=== PATIENT | male | born 1990 | race Caucasian/White ===

== ENCOUNTER 2021-01-02 15:38 | Emergency (ER) | payer SELFPAY ==
--- NOTE | 2021-01-02 16:09 | ED_ITS ---
HPI - Male Genitourinary General Chief complaint: Urogenital-Male Stated complaint: STD testing Mode of arrival: ambulatory Limitations: no limitations History of Present Illness HPI Narrative: This is a 30-year-old male that presents with penile discharge has had unprotected sex with his girlfriend, currently there is no rash no penile lesions no fever chills no dysuria no hematuria no abdominal pain no flank pain no nausea vomiting. MD Complaint: penile discharge Onset (ago): day(s) Duration: intermittent Location: penis Severity: mild Review of Systems Review of Systems: All systems reviewed & are unremarkable except as noted in HPI and below [facility] Past Medical History Medical History Patient denies medical problems Exam Const: General: no acute distress and alert HENMT: Head: normal to inspection Eyes: Conjunctivae: conjunctivae normal Pupils: Equal, round and reactive pupils present Neck: Neck: normal visual inspection, no lymphadenopathy and no meningeal signs Chest: Chest palpation & inspection: normal inspection of the chest Resp: Effort & Inspection: normal respiratory effort Cardio: Rate: regular rate Rhythm: regular rhythm GI: GI Palp: Yes Soft to palpation : Other: penile discharge Urinary Catheter: Urinary Catheter: patent and draining and urine clear Back/Spine/Pelvis: Back: no CVA tenderness Skin: General skin exam: normal color Rashes: no rashes Psych: Mental Status: mental status grossly normal Affect: normal affect Course Course Emergency Course: patient gave a sample for urine GNC and will obtain blood work for HIV and RPR, the patient was given a g of Rocephin and a g of Zithromax. Critical Care Time Critical Care Time Critical Care Time: No Discharge Plan Discharge Clinical Impression: STD exposure Patient Disposition: Home, Self-Care Condition: Stable Instructions: Antibiotic Form, Sexually Transmitted Diseases (ED) Additional Instructions: follow-up with primary care physician within 1 to 2 weeks for further evaluation and treatment advised to have all sexual partners treated. Follow-up/Referrals: UNKNOWN,DOCTOR [Primary Care Provider] - Time of Disposition: 16:13
[2021-01-02 16:13] VITALS: BP 140/101; PULSE 78; RESP 20; TEMP 36.5; O2SAT 98
[2021-01-02] MEDS: LIDOCAINE HCL 1% LOCAL INJ 20 ML VIAL (16:13)
[2021-01-02] MEDS: AZITHROMYCIN 250 MG TABLET 1000 MG PO (16:13)
[2021-01-02] MEDS: cefTRIAXone 1 GM VIAL IM (16:13)
[2021-01-02 16:41] VITALS: BP 146/100; PULSE 96; RESP 20; TEMP 36.7; O2SAT 98
[2021-01-02 17:23] LABS: HIV 1 P24 AG Negative (Negative); HIV 1/2 AB Negative (Negative)
[2021-01-04 15:12] LABS: RPR Screen Non-Reactive (Non-Reactive)
== END 2021-01-02 16:43 | disposition home or self-care (01) ==
PROVIDERS: Emergency Provider Emergency Medicine
DX: Z20.2 Contact with and (suspected) exposure to infections with a predominantly sexual mode of transmission (principal)
CPT/HCPCS: 36415; 86592; 86703; 87491; 87591; 96372; 99283; A9270; J0696

== ENCOUNTER 2023-10-30 22:59 | Emergency (ER) | payer SELFPAY ==
[2023-10-30 23:02] VITALS: BP 163/119; PULSE 115; RESP 20; TEMP 36.6; O2SAT 98
--- NOTE | 2023-10-30 23:08 | PC.NURSE ---
patient came to desk asking if he could go out and smoke. encouraged patient to wait in the room for ER provider
--- NOTE | 2023-10-30 23:37 | ED.GENADULT ---
HPI - General Adult General Chief complaint: Unspecified Stated complaint: STD check, Parasite check Time Seen by Provider: 10/30/23 23:20 Source: patient Mode of arrival: ambulatory Limitations: no limitations History of Present Illness HPI narrative: patient is a 33-year-old known meth amphetamine user presents with a high with asymptomatic no dysuria no fever chills no high-risk sexual activity. JUST CONCERNED ABOUT STD AND WANTS TO BE EVALUATED. Related Data Home Medications Medication Instructions Recorded Confirmed No Home Medications 01/02/21 01/02/21 Allergies Allergy/AdvReac Type Severity Reaction Status Date / Time No Known Allergies Allergy Verified 01/02/21 16:20 Review of Systems Review of Systems: All systems reviewed & are unremarkable except as noted in HPI and below PMFSH Past Medical History Medical History Patient denies medical problems Social History Social History Gender identity (if verbalized by the patient): Male Exam Const: General: cooperative, healthy appearing, comfortable, no acute distress and well developed HENMT: Head: normal to inspection Face and sinus: normal facial exam Mouth: Yes Normal oral and palatal mucosa present Eyes: General: appearance normal, both eyes and all related structures Visual Valdes: normal visual valdes by confrontation Neck: Neck: normal visual inspection, full ROM and no lymphadenopathy Chest: Chest palpation & inspection: normal inspection of the chest Resp: Effort & Inspection: normal respiratory effort : General: Yes bimanual renal exam normal bilaterally Skin: General skin exam: normal color and no rashes or lesions noted Neuro: General: oriented to person, oriented to place, oriented to time and patient oriented x3 Course Course Emergency Course: CBC and STD evaluation with RPR HIV and gonorrhea and Chlamydia were performed. Vital Signs Vital signs: Vital Signs Temperature 36.6 C 10/30/23 23:02 Pulse Rate 115 H 10/30/23 23:02 Respiratory Rate 20 10/30/23 23:02 Blood Pressure 163/119 H 10/30/23 23:02 Pulse Oximetry 98 10/30/23 23:02 Oxygen Delivery Room Air 10/30/23 23:02 Temperature 36.6 C 10/30/23 23:02 Pulse Rate 115 H 10/30/23 23:02 Respiratory Rate 20 10/30/23 23:02 Blood Pressure 163/119 H 10/30/23 23:02 Pulse Oximetry 98 10/30/23 23:02 Oxygen Delivery Room Air 10/30/23 23:02 Medical Decision Making Vital Signs Vital Signs: Vital Signs Temperature 36.6 C 10/30/23 23:02 Pulse Rate 115 H 10/30/23 23:02 Respiratory Rate 20 10/30/23 23:02 Blood Pressure 163/119 H 10/30/23 23:02 Pulse Oximetry 98 10/30/23 23:02 Oxygen Delivery Room Air 10/30/23 23:02 Temperature 36.6 C 10/30/23 23:02 Pulse Rate 115 H 10/30/23 23:02 Respiratory Rate 20 10/30/23 23:02 Blood Pressure 163/119 H 10/30/23 23:02 Pulse Oximetry 98 10/30/23 23:02 Oxygen Delivery Room Air 10/30/23 23:02 Critical Care Time Critical Care Time Critical Care Time: No Discharge Plan Discharge Clinical Impression: STI (sexually transmitted infection) Patient Disposition: Home, Self-Care Condition: Stable Instructions: Antibiotic Form, Sexually Transmitted Diseases (ED) Additional Instructions: advised follow-up with primary care physician. Prescriptions: No Action No Home Medications Follow-up/Referrals: UNKNOWN,DOCTOR [Primary Care Provider] -
[2023-10-30] MEDS: cloNIDine HCL 0.1 MG TABLET 0.2 MG PO (23:59)
[2023-10-31 00:05] LABS: Basophils Absolute Auto 0.05 K/mm3 (0.00-0.10); Basophils Percent Auto 0.6 % (0.0-1.0); Eosinophils Absolute Auto 0.13 K/mm3 (0.02-0.50); Eosinophils Percent Auto 1.5 % (1.0-6.0); Hematocrit 44.5 % (40.0-54.0); Hemoglobin 15.3 g/dL (14.0-18.0); Immature Granulocyte Absolute 0.03 K/mm3 (0.00-0.00); Immature Granulocyte Percent A 0.3 % (0.0-0.0); Lymphocytes Absolute Auto 2.32 K/mm3 (1.10-4.50); Lymphocytes Percent Auto 26.5 % (18.0-42.0); Mean Corpuscular HGB Conc 34.4 g/dL (32-36); Mean Corpuscular Hemoglobin 29.7 pg (27.0-31.0); Mean Corpuscular Volume 86.2 fL (78.0-102.0); Mean Platelet Volume 10.6 fl (8.7-11.0); Monocytes Absolute Auto 0.78 K/mm3 (0.10-0.90); Monocytes Percent Auto 8.9 % (2.0-11.0); Neutrophils Absolute Auto 5.43 K/mm3 (1.70-7.20); Neutrophils Percent Auto 62.2 % (50.0-70.0); Platelet Count Result 191 K/mm3 (150-420); Red Blood Count 5.16 M/mm3 (4.70-6.10); Red Cell Distribution Width 11.6 % (11.6-14.4); White Blood Count 8.7 K/mm3 (4.8-10.8)
[2023-10-31 00:20] VITALS: BP 154/113
[2023-10-31 00:23] VITALS: BP 153/114; PULSE 88; RESP 18; O2SAT 100
[2023-10-31 01:05] LABS: HIV 1 P24 AG Negative (Negative); HIV 1/2 AB Negative (Negative)
[2023-11-01 08:12] LABS: Chlamydia trachomatis NOT DETECTED (NOT DETECTE); Neisseria gonorrhoeae PCR NOT DETECTED (NOT DETECTE)
[2023-11-01 13:53] LABS: RPR Screen NON-REACTIVE (NON-REACTIVE)
== END 2023-10-31 00:24 | disposition home or self-care (01) ==
LOC: CHSED 10-31 00:19
PROVIDERS: Emergency Provider Emergency Medicine
DX: A64 Unspecified sexually transmitted disease (principal)
CPT/HCPCS: 36415; 85025; 86592; 87491; 87591; 87806; 99283; A9270

== ENCOUNTER 2024-12-06 21:10 | Emergency (ER) | payer OTHER, SELFPAY ==
[2024-12-06 21:10] VITALS: BP 174/127; PULSE 98; RESP 16; TEMP 36.6; O2SAT 96
--- OUTSIDE RECORDS SUMMARY | 2024-12-06 21:13 | XMS_ITS | Clinical Summary ---
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 Gender Identity Not on file Sexual Orientation Not on file Last Filed Vital Signs Vital Sign Reading Time Taken Comments Blood Pressure 158/106 11/06/2021 10:22 PM CDT Pulse 79 11/06/2021 10:22 PM CDT Temperature 36.6 C (97.9 F) 11/06/2021 10:22 PM CDT Respiratory Rate 16 11/06/2021 10:22 PM CDT Oxygen Saturation 100% 11/06/2021 10:22 PM CDT Inhaled Oxygen Concentration - - Weight 63.5 kg (140 lb) 11/06/2021 10:22 PM CDT Height 182.9 cm (6') 11/06/2021 10:22 PM CDT Body Mass Index 18.99 11/06/2021 10:22 PM CDT Plan of Treatment Health Maintenance Due Date Last Done Comments Annual Physical 1994 DTaP, Tdap and Td Vaccines (6 - Tdap) 2002 09/20/1996, 10/16/1992, 06/19/1992, Additional history exists Hepatitis C 2009 HPV Vaccines (1 - 3-dose SCDM series) 2018 COVID-19 Vaccine ( season) 2024 Hepatitis B Vaccines Completed 03/21/1997, 10/18/1996, 09/20/1996 Meningococcal B Vaccine Aged Out No l onger eligible based on patient's age to complete this topic Meningococcal Vaccine Aged Out No syeda faith eligible based on patient's age to complete this topic Pneumococcal Vaccine: Pediatrics (0 to 5 Years) and At-Risk Patients (6 to 49 Years) Aged Out No longer eligible based on patient's age to complete this topic RSV Immunizations Under 20 Months Aged Out No longer eligible based on patient's age to complete this topic Care Teams Medical Leader Relationship Specialty Start Date End Date None, Provider, PCP - General 11/06/21
--- NOTE | 2024-12-06 21:38 | ED_ITS ---
HPI - Skin/Abscess/Foreign Bdy General Chief complaint: Skin/Abscess/Foreign Body Stated complaint: RASH Time Seen by Provider: 12/06/24 21:11 Source: patient Mode of arrival: ambulatory Limitations: no limitations History of Present Illness HPI narrative: 34-year-old male, smoker active methamphetamine use presents to the ED with a 3 day history of -- bilateral lower legs and foot erythematous rash with maculopapular lesions and erythema. Pruritic. possible exposure to poison delmi. No throat swelling, tongue swelling, shortness of breath or lightheadedness. Had a tetanus shot many years ago. complaint: rash Onset (ago): day(s) ( Three days) Tetanus up to date: no Location: LUE Severity: severe Quality: pruritic Pain Consistency: constant Relieving factors: none Exacerbating factors: none Context: other ( exposure to poison delmi.) Associated symptoms: denies other symptoms Treatments prior to arrival: none Related Data Home Medications ?Medication ?Instructions ?Recorded ?Confirmed ?Last Taken ?Type No Home Medications 01/02/21 01/02/21 Unknown History Allergies Allergy/AdvReac Type Severity Reaction Status Date / Time No Known Allergies Allergy Verified 01/02/21 16:20 Review of Systems Review of Systems: All systems reviewed & are unremarkable except as noted in HPI and below PMFSH Past Medical History Medical History Patient denies medical problems Social History Social History (Updated 12/06/24 @ 21:47 by Song Perez MD) Social History: Smoker, amphetamine abuse. Gender identity (if verbalized by the patient): Male Exam Narrative: Blood pressure is currently 174/127. Const: General: no acute distress Orientation/consciousness: patient orie nted x3 Limitations: no limitations HENMT: Head: normal to inspection Ears: external ears normal Face/Nose/Sinus: Normal external nose present Face and sinus: normal facial exam Mouth: Yes Normal oral and palatal mucosa present Throat: posterior oropharynx normal Eyes: Conjunctivae: conjunctivae normal Pupils: Equal, round and reactive pupils present EOM: EOMs intact bilaterally Direct Ophthalmoscopy: no photophobia Neck: Neck: normal visual inspection, no lymphadenopathy and no meningeal signs Chest: Chest palpation & inspection: normal inspection of the chest Resp: Effort & Inspection: normal respiratory effort Auscultation: clear to auscultation bilaterally Cardio: Rate: regular rate Rhythm: regular rhythm GI: GI Palp: Yes Soft to palpation Auscultation: normal bowel sounds Other: No tenderness/rigidity /rebound. : General: Yes no CVA tenderness Back/Spine/Pelvis: Back: no CVA tenderness Skin: Other: Rash in lower legs and foot-- erythematous, maculopapular. Neuro: General: patient oriented x3, moves all extremities, no meningeal signs and no focal motor deficits Speech: normal speech Extrem: General: normal to inspection and no clubbing, cyanosis or edema Psych: Mental Status: mental status grossly normal Affect: normal affect Attitude: cooperative Course Course Emergency Course: Allergic contact dermatitis-- will treat with Benadryl, Solu-Medrol 125. Patient is not up-to-date on tetanus will give him a dose of Adacel Vital Signs Vital signs: Vital Signs Temperature 36.6 C 12/06/24 21:10 Pulse Rate 98 12/06/24 21:10 Respiratory Rate 16 12/06/24 21:10 Blood Pressure 174/127 H 12/06/24 21:10 Pulse Oximetry 96 12/06/24 21:10 Oxygen Delivery Room Air 12/06/24 21:10 Temperature 36.6 C 12/06/24 21:10 Pulse Rate 98 12/06/24 21:10 Respiratory Rate 16 12/06/24 21:10 Blood Pressure 174/127 H 12/06/24 21:10 Pulse Oximetry 96 12/06/24 21:10 Oxygen Delivery Room Air 12/06/24 21:10 MDM - Skin/Abscess/Foreign Bdy MDM Narrative Medical decision making narrative: Allergic contact dermatitis Differential Diagnosis Differential diagnosis: Likely viral exanthem and urticaria Discharge Plan Discharge Clinical Impression: Allergic contact dermatitis Patient Disposition: Home Condition: Stable Instructions: Antibiotic Form, Contact Dermatitis (ED) Patient Language: Albanian Prescriptions: No Action No Home Medications Follow-up/Referrals: UNKNOWN,DOCTOR [Primary Care Provider] - Time of Disposition: 22:13
--- OUTSIDE RECORDS SUMMARY | 2024-12-06 21:52 | XMS_ITS | Clinical Summary ---
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
[2024-12-06] MEDS: TETANUS,DIPHTHERIA,AC PERTUSSIS ADULT 0.5 ML (ADACEL) IM (22:09)
== END 2024-12-06 22:31 | disposition home or self-care (01) ==
PROVIDERS: Emergency Provider Internal Medicine Critical Care Medicine
DX: L23.9 Allergic contact dermatitis, unspecified cause (principal); Z23 Encounter for immunization
CPT/HCPCS: 90471; 90714; 90715; 96372; 99283; J2919

== ENCOUNTER 2024-12-21 14:21 | Emergency (ER) | payer OTHER, SELFPAY ==
[2024-12-21 14:23] VITALS: BP 169/112; RESP 18; TEMP 36.4; O2SAT 98
--- OUTSIDE RECORDS SUMMARY | 2024-12-21 14:24 | XMS_ITS | Clinical Summary ---
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
--- NOTE | 2024-12-21 14:25 | ED_ITS ---
HPI - Skin/Abscess/Foreign Bdy General Chief complaint: Skin/Abscess/Foreign Body Stated complaint: POISON SINAN OR OAK Time Seen by Provider: 12/21/24 14:25 Source: patient Mode of arrival: ambulatory Limitations: no limitations History of Present Illness HPI narrative: patient presents with itching and urticarial lesions on his arms and abdomen with no shortness of breath no fever chills no nausea vomiting or abdominal pain. Patient unsure of anything that he got exposed to. complaint: rash Onset (ago): day(s) Location: generalized Severity: mild Related Data Allergies Allergy/AdvReac Type Severity Reaction Status Date / Time No Known Allergies Allergy Verified 12/21/24 14:28 Review of Systems Review of Systems: All systems reviewed & are unremarkable except as noted in HPI and below PMFSH Past Medical History Medical History Patient denies medical problems Social History Social History Social History: Smoker, amphetamine abuse. Gender identity (if verbalized by the patient): Male Exam Const: General: healthy appearing Nutritional Appearance: well nourished Chest: Chest palpation & inspection: normal inspection of the chest Resp: Effort & Inspection: normal respiratory effort Auscultation: clear to auscultation bilaterally Cardio: Rate: regular rate Rhythm: regular rhythm GI: Auscultation: normal bowel sounds Skin: General skin exam: normal color Wounds: wounds noted Neuro: General: patient oriented x3 Course Course Emergency Course: Patient received 80mg IM Depo-Medrol. Vital Signs Vital signs: Vital Signs Temperature 36.4 C 12/21/24 14:23 Respiratory Rate 18 12/21/24 14:23 Blood Pressure 169/112 H 12/21/24 14:23 Pulse Oximetry 98 12/21/24 14:23 Oxygen Delivery Room Air 12/21/24 14:23 Temperature 36.4 C 12/21/24 14:23 Respiratory Rate 18 12/21/24 14:23 Blood Pressure 169/112 H 12/21/24 14:23 Pulse Oximetry 98 12/21/24 14:23 Oxygen Delivery Room Air 12/21/24 14:23 Critical Care Time Critical Care Time Critical Care Time: No Discharge Plan Discharge Clinical Impression: Contact dermatitis Qualifiers: Contact dermatitis type: allergic Contact dermatitis trigger: unspecified trigger Qualified Code(s): L23.9 - Allergic contact dermatitis, unspecified cause Patient Disposition: Home Condition: Stable Instructions: Antibiotic Form, Contact Dermatitis (ED) Additional Instructions: Take medication as prescribed and follow the primary if symptoms persist or worsen. Patient Language: Eritrean Prescriptions: New methylprednisolone [Medrol (Fredo)] 4 mg tablets,dose pack See Rx Instructions .ROUTE .COMPLEX Qty: 21 0RF Rx Instructions: for 6 days Follow-up/Referrals: Geoff Silva DO [Primary Care Provider] - Time of Disposition: 14:29
[2024-12-21] MEDS: methylPREDNISolone ACETATE 40 MG/ML VIAL 80 MG IM (14:29)
--- OUTSIDE RECORDS SUMMARY | 2024-12-21 14:48 | XMS_ITS | Clinical Summary ---
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
== END 2024-12-21 14:30 | disposition home or self-care (01) ==
LOC: CHSED 14:46
PROVIDERS: Emergency Provider Emergency Medicine; Referring Provider Family Medicine
DX: L23.9 Allergic contact dermatitis, unspecified cause (principal)
CPT/HCPCS: 96372; 99283; J1010

== ENCOUNTER 2025-02-06 15:37 | Emergency (ER) | payer OTHER, SELFPAY ==
[2025-02-06 15:39] VITALS: BP 143/107; PULSE 84; RESP 18; TEMP 36.1; O2SAT 97
--- NOTE | 2025-02-06 15:40 | ED.EYEPROB ---
HPI - Eye Problem General Chief complaint: Eye Problems Stated complaint: rt eye infection Time Seen by Provider: 02/06/25 15:40 Source: patient Mode of arrival: ambulatory Limitations: no limitations History of Present Illness HPI Narrative: 34-year-old male presents to the ED with 1 day history of -- right eye pain and redness. No tearing. No history of trauma. Patient does not use contact lenses. patient had a prior history of corneal abrasion on the right eye. No residual problems. chief complaint: eye pain and eye redness Onset (ago): day(s) ( One day) Onset description: gradual Duration: constant Location: right eye Eye Symptoms: burning, redness, pain and foreign body sensation Severity: moderate If Pain, Quality: aching Associated symptoms: none Treatments Prior to Arrival: none Related Data Patient tetanus UTD: Yes Allergies Allergy/AdvReac Type Severity Reaction Status Date / Time No Known Allergies Allergy Verified 02/06/25 15:38 Review of Systems Review of Systems: All systems reviewed & are unremarkable except as noted in HPI and below PMFSH Past Medical History Medical History Patient denies medical problems Social History Social History Social History: Smoker, amphetamine abuse. Gender identity (if verbalized by the patient): Male Exam Narrative: Blood pressure 153/107 Const: General: no acute distress Nutritional Appearance: thin Orientation/consciousness: patient oriented x3 Limitations: no limitations HENMT: Head: normal to inspection Ears: external ears normal Face/Nose/Sinus: Normal external nose present Face and sinus: normal facial exam Mouth: Yes Normal oral and palatal mucosa present Throat: posterior oropharynx normal Eyes: Conjunctivae: conjunctivae normal ( right conjunctival erythema) Pupils: Equal, round and reactive pupils present EOM: EOMs intact bilaterally Direct Ophthalmoscopy: photophobia ( right eye are photophobia) Other: right medial canthus appears prominent. Conjunctival erythema anterior chamber is clear. No hyphema no foreign body noted. Fluorescein staining did not show any uptake on the cornea patient appears to prior injury to the right inner canthus. Puncta the canalicular look unremarkable. There is no tearing bleeding. Neck: Neck: normal visual inspection, no lymphadenopathy and no meningeal signs Chest: Chest palpation & inspection: normal inspection of the chest Resp: Effort & Inspection: normal respiratory effort Auscultation: clear to auscultation bilaterally Cardio: Rate: regular rate Rhythm: regular rhythm GI: Auscultation: normal bowel sounds Other: no tenderness/rigidity/rebound. : General: Yes no CVA tenderness Back/Spine/Pelvis: Back: no CVA tenderness Skin: General skin exam: normal color Rashes: no rashes Wounds: no wounds Neuro: General: patient oriented x3, moves all extremities, no meningeal signs, no focal motor deficits and CN's II-XI intact bilaterally Cranial nerves: Yes Nystagmus not present Speech: normal speech Gait exam (Neuro): Normal gait present Extrem: General: normal to inspection, no clubbing, cyanosis or edema and no pedal edema Psych: Mental Status: mental status grossly normal Affect: normal affect Attitude: cooperative Course Course Emergency Course: Conjunctivitis Vital Signs Vital signs: Vital Signs Temperature 36.1 C L 02/06/25 15:39 Pulse Rate 84 02/06/25 15:39 Respiratory Rate 18 02/06/25 15:39 Blood Pressure 143/107 H 02/06/25 15:39 Pulse Oximetry 97 02/06/25 15:39 Oxygen Delivery Room Air 02/06/25 15:39 Temperature 36.1 C L 02/06/25 15:39 Pulse Rate 84 02/06/25 15:39 Respiratory Rate 18 02/06/25 15:39 Blood Pressure 143/107 H 02/06/25 15:39 Pulse Oximetry 97 02/06/25 15:39 Oxygen Delivery Room Air 02/06/25 15:39 MDM - Eye Problem MDM Narrative Medical decision making narrative: Conjunctivitis Differential Diagnosis Differential diagnosis: Likely corneal abrasion Medical Records Attestation: I reviewed the patient's medical records. Discharge Plan Discharge Clinical Impression: Conjunctivitis Patient Disposition: Home Condition: Stable Instructions: Antibiotic Form, Conjunctivitis (ED) Patient Language: Hungarian Prescriptions: New ciprofloxacin HCl 0.3 % drops 1 drp RIGHT EYE Q4H 5 Days Qty: 5 0RF Rx Instructions: administer while awake Follow-up/Referrals: Geoff Silva DO [Primary Care Provider, [facility]] Time of Disposition: 16:15
--- OUTSIDE RECORDS SUMMARY | 2025-02-06 15:40 | XMS_ITS | Clinical Summary ---
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
[2025-02-06] MEDS: DACRIOSE EYE IRRIGATION 118 ML BOTTLE RIGHT EYE (15:54)
[2025-02-06] MEDS: FLUORESCEIN SOD 1 MG/STRIP RIGHT EYE (15:55)
[2025-02-06] MEDS: TETRACAINE HCL 0.5% OPHTH SOLN 4 ML BTL 1 DROP RIGHT EYE (15:55)
--- OUTSIDE RECORDS SUMMARY | 2025-02-06 16:27 | XMS_ITS | Clinical Summary ---
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
== END 2025-02-06 16:40 | disposition home or self-care (01) ==
LOC: CHSED 16:26
PROVIDERS: Emergency Provider Internal Medicine Critical Care Medicine; PCP Family Medicine
DX: H10.9 Unspecified conjunctivitis (principal)
CPT/HCPCS: 99283; A9270

== ENCOUNTER 2025-04-22 20:40 | Emergency (ER) | payer OTHER, SELFPAY ==
--- OUTSIDE RECORDS SUMMARY | 2025-04-22 20:42 | XMS_ITS | Clinical Summary ---
Author Organization [facility] Address [address] [place] [address] Care Team Providers Care Management Expert Name Role Phone None, Provider MD Primary Care Provider Unavaila ble Allergies No known active allergies Medications No known medications Encounters Date Type Department Care Team Description 02/11/2025 8:52 PM CDT - 02/11/2025 9:36 PM CDT Emergency [facility] [address] [facility] [place] [address] Robert Boyle DO Eye Pain (R side) Discharge Disposition: Left Against Medical Advice 02/11/2025 Travel from Last 3 Months Social History Tobacco Use Types Packs/Day Years Used Date Smoking Tobacco: Never Smokeless Tobacco: Never Sex and Gender Information Value Date Recorded Sex Assigned at Male 02/11/2025 9:05 PM CDT Legal Sex Male 5:59 PM [employer] Gender Identity Not on file Sexual Orientation Not on file Last Filed Vital Signs Vital Sign Reading Time Taken Comments Blood Pressure 137/92 02/11/2025 8:56 PM CDT Pulse 90 02/11/2025 8:56 PM CDT Temperature 36 C (96.8 F) 02/11/2025 8:56 PM CDT Respiratory Rate 18 02/11/2025 8:56 PM CDT Oxygen Saturation 100% 02/11/2025 8:56 PM CDT Inhaled Oxygen Concentration - - Weight 63.6 kg (140 lb 3.2 oz) 02/11/2025 8:56 P M CDT Height 182.9 cm (6') 02/11/2025 8:56 PM CDT Body Mass Index 19.01 02/11/2025 8:56 PM CDT Plan of Treatment Health Maintenance Due Date Last Done Comments Annual Physical 1994 DTaP, Tdap and Td Vaccines (6 - Tdap) 2002 09/20/1996, 10/16/1992, 06/19/1992, Additional history exists Hepatitis C 2009 HPV Vaccines (1 - 3-dose SCDM series) 2018 COVID-19 Vaccine ( - 2024- season) 2025 Influenza Adult (#1) 2025 Hepatitis B Vaccines Completed 03/21/1997, 10/18/1996, 09/20/1996 Hepatitis A Vaccines Aged Out No long er eligible based on patient's age to complete this topic Meningococcal B Vaccine Aged Out No l [...] on patient's age to complete this topic Insurance [employer] MEDICA[employer] Care Teams Management Expert Relationship Specialty Start Date End Date None, Provider, PCP - General 11/06/21
[2025-04-22 20:45] VITALS: BP 163/117; PULSE 104; RESP 16; TEMP 36.4; O2SAT 98
--- NOTE | 2025-04-22 20:48 | ED_ITS ---
HPI - General Adult General Chief complaint: Unspecified Stated complaint: unspecified Time Seen by Provider: 04/22/25 20:48 Source: patient Mode of arrival: ambulatory Limitations: no limitations History of Present Illness HPI narrative: 34-year-old male with a history of allergic contact dermatitis presents to the ED with --recurrent rash in bilateral hands. This is intermittent. When the rash comes on it is itchy. He has had this going on for couple of years. Rash does not involve any other part of the body. --watery rhinorrhea. No mucopurulent discharge. No sinus pain. No fever or chills. Onset (ago): day(s) Severity: moderate Relieving factors: none Exacerbating factors: none Treatments prior to arrival: none Related Data Allergies Allergy/AdvReac Type Severity Reaction Status Date / Time No Known Allergies Allergy Verified 02/06/25 15:38 Review of Systems Review of Systems: All systems reviewed & are unremarkable except as noted in HPI and below Constitutional: Constitutional: Reports as per HPI and Reports no additional constitutional complaints Eyes: Eyes: Reports as per HPI, Reports no additional eye complaints and Reports blurry vision ENT: Reports system reviewed and no additional complaints, except as documented, Reports as per HPI, Reports Normal hearing present and Reports nasal discharge Comments: Rhinorrhea--watery Cardiovascular: Cardiovascular: Reports as per HPI and Reports no additional cardiovascular complaints Respiratory: Respiratory: Reports as per HPI and Reports no additional respiratory complaints Gastrointestinal: Gastrointestinal: Reports as per HPI and Reports no additional gastrointestinal complaints Genitourinary: Genitourinary: Reports no additional male genitourinary complaints and Reports as per HPI Musculoskeletal: Musculoskeletal: Reports no additional musculoskeletal complaints and Reports as per HPI Integumentary/Breasts: Skin/Breast: Reports system reviewed and no additional complaints, except as docu and Reports as per HPI Comments: Erythematous rash of both hands. Neurologic: Reports system reviewed and no additional complaints, except as documented and Reports as per HPI Psychiatric: Psychiatric: Reports no additional psychiatric complaints and Reports as per HPI Endocrine: Endocrine: Reports no additional endocrine complaints and Reports as per HPI Hematologic/Lymphatic: Hematologic/Lymphatic: Reports no additional hematologic/lymphatic complaints and Reports as per HPI Allergic/Immunologic: Allergic/Immunologic: Reports no additional allergi c/immunologic complaints and Reports as per HPI [facility] Past Medical History Medical History Patient denies medical problems Social History Social History Social History: Smoker, amphetamine abuse. Gender identity (if verbalized by the patient): Male Exam Narrative: Blood pressure was noted to be 169/117. Patient has a history of high blood pressure but is currently not on any medication. Const: General: cooperative, healthy appearing, comfortable and no acute distress Orientation/consciousness: oriented to person, oriented to place and oriented to time HENMT: Head: normal to inspection, normocephalic and atraumatic Ears: hearing grossly normal bilaterally and external ears normal Face/Nose/Sinus: Normal external nose present, Normal nares present and Nasal discharge present Face and sinus: normal facial exam and sinuses nontender Mouth: Yes Normal oral and palatal mucosa present, Yes lip normal and Yes tongue normal Throat: posterior oropharynx normal Eyes: General: appearance normal, both eyes and all related structures Eyelids: eyelids normal Conjunctivae: conjunctivae normal Sclera: sclerae normal Cornea: corneas normal Pupils: Equal, round and reactive pupils present Neck: Neck: normal visual inspection, full ROM, no lymphadenopathy and no meningeal signs Chest: Chest palpation & inspection: normal inspection of the chest Resp: Effort & Inspection: normal respiratory effort Auscultation: clear to auscultation bilaterally Cardio: Rate: regular rate Rhythm: regular rhythm Heart sounds: S1 normal heart sound present and S2 normal heart sound present GI: Inspection: normal to inspection Auscultation: normal bowel sounds : General: Yes no CVA tenderness Back/Spine/Pelvis: Back: no CVA tenderness Thoracic/Lumbar Spine: thoracic and lumbar spine normal to inspection Skin: General skin exam: normal color Rashes: rashes noted Other: Bilateral hands have erythematous rash. Skin of the forearms is thick. No skin breakdown Neuro: General: oriented to person, oriented to place, oriented to time and patient oriented x3 Cranial nerves: Yes CN's II-XII intact bilaterally Speech: normal speech Gait exam (Neuro): Normal gait present Motor exam (neuro): 5/5 motor strength present throughout Extrem: General: normal to inspection, full ROM and capillary refill normal Psych: Appearance: grossly normal and well kempt Course Course Emergency Course: Allergic contact dermatitis Rhinorrhea/allergic rhinitis Vital Signs Vital signs: Vital Signs Temperature 36.4 C L 04/22/25 20:45 Pulse Rate 104 H 04/22/25 20:45 Respiratory Rate 16 04/22/25 20:45 Blood Pressure 163/117 H 04/22/25 20:45 Pulse Oximetry 98 04/22/25 20:45 Oxygen Delivery Room Air 04/22/25 20:45 Temperature 36.4 C L 04/22/25 20:45 Pulse Rate 104 H 04/22/25 20:45 Respiratory Rate 16 04/22/25 20:45 Blood Pressure 163/117 H 04/22/25 20:45 Pulse Oximetry 98 04/22/25 20:45 Oxygen Delivery Room Air 04/22/25 20:45 MDM MDM Narrative Medical decision making narrative: Allergic contact dermatitis Allergic rhinitis Differential Diagnosis Differential Diagnosis: Atopic dermatitis Discharge Plan Discharge Clinical Impression: Allergic rhinitis Qualifiers: Allergic rhinitis trigger: unspecified Allergic rhinitis seasonality: unspecified Qualified Code(s): J30.9 - Allergic rhinitis, unspecified Allergic contact dermatitis Qualifiers: Contact dermatitis trigger: unspecified trigger Qualified Code(s): L23.9 - Allergic contact dermatitis, unspecified cause Patient Disposition: Home Condition: Stable Instructions: Antibiotic Form, Contact Dermatitis (ED), Allergies (ED) Patient Language: Slovenian Prescriptions: New ipratropium bromide 21 mcg (0.03 %) spray,non-aerosol 2 spray intranasal BID Qty: 30 0RF Rx Instructions: administer into each nostril No Action ciprofloxacin HCl 0.3 % drops 1 drp RIGHT EYE Q4H 5 Days Qty: 5 0RF Rx Instructions: administer while awake Follow-up/Referrals: Jameel An MD [Physician, Internal Medicine] Time of Disposition: 21:26
--- NOTE | 2025-04-22 20:50 | PC.NURSE ---
DR GREEN AT THE BEDSIDE
[2025-04-22 21:28] VITALS: BP 158/101; PULSE 98; RESP 20; O2SAT 100
== END 2025-04-22 21:28 | disposition home or self-care (01) ==
PROVIDERS: Emergency Provider Internal Medicine Critical Care Medicine; Referring Provider Internal Medicine
DX: J30.9 Allergic rhinitis, unspecified (principal); L23.9 Allergic contact dermatitis, unspecified cause
CPT/HCPCS: 99281